=== PATIENT | female | born 1945 ===

== ENCOUNTER 2021-10-13 10:49 | Outpatient (CLI) | payer MEDICARE, SELFPAY ==
[2021-10-13 11:02] VITALS: BP 125/64; PULSE 56; RESP 18; TEMP 36.3; O2SAT 99
[2021-10-13] MEDS: denosumab 60 mg SDV SUBCUT (11:10)
[2021-10-13 11:21] VITALS: BP 135/67; PULSE 66; RESP 16; TEMP 36.3; O2SAT 97
== END 2021-10-13 10:50 | disposition home or self-care (01) ==
PROVIDERS: Referring Provider Nurse Practitioner; Visit Provider Nurse Practitioner
DX: M81.0 Age-related osteoporosis without current pathological fracture (principal)
CPT/HCPCS: 96372; J0897